=== PATIENT | female | born 1980 | race Caucasian/White ===

== ENCOUNTER 2024-02-15 05:21 | Emergency (ER) | payer OTHER, SELFPAY ==
[2024-02-15 05:24] VITALS: BP 117/73; PULSE 81; TEMP 36.7; O2SAT 99; BMI 23.4
--- NOTE | 2024-02-15 05:31 | PC.NURSE ---
Pt has swelling and redness noted to right 1st finger. Mild discoloration nunder nailbed. Pt reports intermitent numbness to tip of finger. No specific injury reported, pain and swelling has increased since Sunday.
--- NOTE | 2024-02-15 05:46 | ED.GENADUL1 ---
HPI HPI - General Adult General Chief complaint: Extremity Injury, Upper Stated complaint: RT THUMB SWELLING Time Seen by Provider: 02/15/24 05:22 Source: patient Mode of arrival: walk-in Limitations: no limitations History of Present Illness HPI narrative: 43-year-old female presents for pain redness and swelling to her right thumb. She had this for few days. She gives no history of any injury. She states that the swelling on the finger pad makes it feel numb and she really does not have pain there. She has pain at the nail and just proximal to it. She gives no history of known foreign body and definitely had no trauma. She works with horses. Related Data Home Medications ?Medication ?Instructions ?Recorded ?Confirmed meloxicam 7.5 mg tablet 7.5 mg PO DAILY 02/15/24 02/15/24 Previous Rx's ?Medication ?Instructions ?Recorded amoxicillin 875 mg-potassium 1 tab PO BID #14 tabs 02/15/24 clavulanate 125 mg tablet hydrocodone 5 mg-acetaminophen 325 1 tab PO Q6H PRN pain 5 days #20 02/15/24 mg tablet tabs Allergies Allergy/AdvReac Type Severity Reaction Status Date / Time ciprofloxacin [From Cipro] Allergy Hives Verified 02/15/24 05:30 Opioid HPI Opioid Management Most Recent Opioid Data: No Data to Display Review of Systems ROS Narrative A ten point review of systems is negative except as noted above. Exam Narrative Exam Narrative: Nurses note and vital signs reviewed and patient is not hypoxic. General: The patient appears well and in no apparent distress. Patient is resting comfortably on cart. Skin: Warm, dry, no pallor noted. There is no rash noted. Head: Normocephalic, atraumatic Eye: Normal conjunctiva, no drainage Ears, Nose, Mouth, and Throat: oral mucosa is moist. Nares patent. Cardiovascular: Regular Rate and Rhythm Respiratory: Patient is in no distress, no accessory muscle use Back: non-tender GI: Soft and nontender Musculoskeletal: The right thumb is examined. There is no felon or paronychia. No break in the skin. There is discoloration under the nail. There is erythema primarily proximal to the nail on the extensor side. IP joint function is intact. Neurological: Awake and alert Psychiatric: Cooperative Constitutional Vital Signs, click to edit/add: Last Vital Signs Temp 98.1 F 02/15/24 05:24 Pulse 81 02/15/24 05:24 Resp 16 02/15/24 05:24 BP 117/73 02/15/24 05:24 Pulse Ox 99 02/15/24 05:24 O2 Del Method Room Air 02/15/24 05:24 Course Vital Signs Vital signs: Vital Signs Temperature 98.1 F 02/15/24 05:24 Pulse Rate 81 02/15/24 05:24 Respiratory Rate 16 02/15/24 05:24 Blood Pressure 117/73 02/15/24 05:24 Pulse Oximetry 99 02/15/24 05:24 Oxygen Delivery Method Room Air 02/15/24 05:24 Temperature 98.1 F 02/15/24 05:24 Pulse Rate 81 02/15/24 05:24 Respiratory Rate 16 02/15/24 05:24 Blood Pressure 117/73 02/15/24 05:24 Pulse Oximetry 99 02/15/24 05:24 Oxygen Delivery Method Room Air 02/15/24 05:24 Medical Decision Making MDM Narrative Medical decision making narrative: I have no clinical suspicion at this point of a felon or paronychia. There is no suspicion of foreign body or fracture and an x-ray is not indicated. She is placed on Augmentin and [place] and will return if symptoms worsen. Treatment diagnosis and follow-up were discussed with the patient. Differential Diagnosis Differential Diagnosis: Felon, paronychia, cellulitis Discharge Plan Discharge Stand Alone Forms: Portal Instructions Chief Complaint: Extremity Injury, Upper Clinical Impression: Cellulitis of right thumb Patient Disposition: Home, Self-Care Time of Disposition Decision: 05:43 Condition: Good Mode of Transportation: Private Vehicle Prescriptions / Home Meds: New amoxicillin-pot clavulanate 875-125 mg tablet 1 tab PO BID Qty: 14 0RF hydrocodone-acetaminophen 5-325 mg tablet 1 tab PO Q6H PRN (Reason: pain) 5 Days Qty: 20 0RF No Action meloxicam 7.5 mg tablet 7.5 mg PO DAILY Print Language: Kazakh Instructions: Cellulitis (ED) Referrals: RAMSEY KAY [Primary Care Provider] - 1 week Procedures ED Procedure Instructions Procedures Procedures: The following procedure was performed by me. Alcohols swab was carried out to the fingernail and electrocautery device was used to trephinate the nail. No blood or pus was extracted. No complications.
[2024-02-15] MEDS: AMOXICILLIN/POTASSIUM CLAV 1 TAB TABLET PO (06:01)
[2024-02-15 06:03] VITALS: BP 115/70; PULSE 78; O2SAT 100
== END 2024-02-15 06:03 | disposition home or self-care (01) ==
PROVIDERS: Emergency Provider Emergency Medicine; PCP Internal Medicine
DX: L03.011 Cellulitis of right finger (principal)
CPT/HCPCS: 99283